=== PATIENT | male | born 1930 | race Caucasian/White ===

== ENCOUNTER 2017-10-22 16:08 | Emergency (ER) | payer OTHER ==
[2017-10-22] MEDS ORDERED: NA CHLORIDE 0.9% 1,000 ML ONE (16:43)
[2017-10-22 16:55] LABS: Absolute Lymphocytes (CBC) 1.4 K/uL (0.7-4.9); Absolute Monocytes 0.5 K/uL (0.1-1.3); Absolute Neutrophil 4.2 K/uL (1.8-8.0); Basophils % 0.5 % (0-1.3); Hematocrit 36.3 % (39.6-49.0); Lymphocytes % 22.5 % (15.3-44.8); MCH 31.7 pg (27.0-35.0); MPV 8.9 fL (7.6-11.3); Monocytes % 7.7 % (3.3-12.3); RBC Red Blood Cell Count 3.94 M/uL (4.33-5.43)
[2017-10-22 17:06] LABS: Potassium 3.6 mEq/L (3.6-5.0)
[2017-10-22 17:09] LABS: Albumin 3.8 g/dL (3.2-5.5); Bilirubin Total 0.4 mg/dL (0.3-1.2); Protein, Total 6.4 g/dL (6.0-8.3)
--- NOTE | 2017-10-22 18:50 | EDPHYS ---
Physician Documentation [facility] Name: Rell Hooker Age: 86 yrs Sex: Male : 1930 Arrival Date: 10/22/2017 Time: 16:11 Bed 5 Private MD: None, None ED Physician Nicola Morales HPI: 10/22 19:00 This 86 yrs old Male presents to ER via Wheelchair with complaints of High pm1 Blood Sugar. 19:00 The patient or guardian reports hyperglycemia, that was potentially precipitated by no pm1 particular event. Onset: The symptoms/episode began/occurred today. Associated signs and symptoms: Pertinent positives: None. Current symptoms: In the emergency department the patient's symptoms have improved, mildly. The patient has experienced similar episodes in the past, a few times. The patient has not recently seen a physician. Patient with complaint of hyperglycemia only. No other complaints. Historical: - Allergies: 16:27 No Known Allergies; sv - PMHx: 16:27 Alzheimers; Diabetes - NIDDM; Hypertension; sv - PSHx: 16:27 Heart stents; prostate cancer; Cholecystectomy; sv - Immunization history:: Adult Immunizations up to date, Adult Immunizations up to date. - Social history:: Smoking status: Patient/guardian denies using tobacco, Smoking status: Patient/guardian denies using tobacco. - Ebola Screening: : Patient denies travel to an Ebola-affected area in the 21 days before illness onset No symptoms or risks identified at this time. ROS: 19:00 Constitutional: Negative for fever, chills, and weight loss, Eyes: Negative for injury, pm1 pain, redness, and discharge, ENT: Negative for injury, pain, and discharge, Neck: Negative for injury, pain, and swelling, Cardiovascular: Negative for chest pain, palpitations, and edema, Respiratory: Negative for shortness of breath, cough, wheezing, and pleuritic chest pain, Abdomen/GI: Negative for abdominal pain, nausea, vomiting, diarrhea, and constipation, Back: Negative for injury and pain, : Negative for injury, bleeding, discharge, and swelling, MS/Extremity: Negative for injury and deformity, Skin: Negative for injury, rash, and discoloration, Neuro: Negative for headache, weakness, numbness, tingling, and seizure. 19:00 Endocrine: Positive for hyperglycemia. Exam: 19:00 Constitutional: This is a well developed, well nourished patient who is awake, alert, pm1 and in no acute distress. Head/Face: Normocephalic, atraumatic. Eyes: Pupils equal round and reactive to light, extra-ocular motions intact. Lids and lashes normal. Conjunctiva and sclera are non-icteric and not injected. Cornea within normal limits. Periorbital areas with no swelling, redness, or edema. ENT: Nares patent. No nasal discharge, no septal abnormalities noted. Tympanic membranes are normal and external auditory canals are clear. Oropharynx with no redness, swelling, or masses, exudates, or evidence of obstruction, uvula midline. Mucous membranes moist. Neck: Trachea midline, no thyromegaly or masses palpated, and no cervical lymphadenopathy. Supple, full range of motion without nuchal rigidity, or vertebral point tenderness. No Meningismus. Chest/axilla: Normal chest wall appearance and motion. Nontender with no deformity. No lesions are appreciated. Cardiovascular: Regular rate and rhythm with a normal S1 and S2. No gallops, murmurs, or rubs. Normal PMI, no JVD. No pulse deficits. Respiratory: Lungs have equal breath sounds bilaterally, clear to auscultation and percussion. No rales, rhonchi or wheezes noted. No increased work of breathing, no retractions or nasal flaring. Abdomen/GI: Soft, non-tender, with normal bowel sounds. No distension or tympany. No guarding or rebound. No evidence of tenderness throughout. Back: No spinal tenderness. No costovertebral tenderness. Full range of motion. Skin: Warm, dry with normal turgor. Normal color with no rashes, no lesions, and no evidence of cellulitis. MS/ Extremity: Pulses equal, no cyanosis. Neurovascular intact. Full, normal range of motion. 19:00 Neuro: Orientation: is normal, Motor: is normal, moves all fours, Sensation: is normal, no obvious gross deficits. Vital Signs: 16:25 BP 122 / 70; Pulse 81; Resp 20; Temp 98.8(O); Pulse Ox 96% on R/A; Weight 72.57 kg (R); tw2 Height 5 ft. 10 in. (177.80 cm); Pain 0/10; 17:35 BP 126 / 61; Pulse 72; Pulse Ox 100% on R/A; sv 18:38 BP 133 / 63; Pulse 67; Resp 18; Pulse Ox 99% ; sv 16:25 Body Mass Index 22.96 (72.57 kg, 177.80 cm) tw2 MDM: 16:39 Patient medically screened. pm1 18:48 Data reviewed: vital signs. Data interpreted: Pulse oximetry: on room air is 99 %. pm1 Interpretation: normal. Counseling: I had a detailed discussion with the patient and/or guardian regarding: the historical points, exam findings, and any diagnostic results supporting the discharge/admit diagnosis, lab results, the need for outpatient follow up, to return to the emergency department if symptoms worsen or persist or if there are any questions or concerns that arise at home. 10/22 16:26 Order name: Glucose, Ancillary Testing; Complete Time: 16:39 EDMS 10/22 16:41 Order name: CBC with Diff; Complete Time: 17:12 pm1 10/22 16:41 Order name: CMP; Complete Time: 17:12 pm1 10/22 16:41 Order name: IV Saline Lock; Complete Time: 16:42 pm1 10/22 18:01 Order name: Glucose Level; Complete Time: 18:41 pm1 Administered Medications: 16:47 Drug: NS 0.9% 1000 ml Route: IV; Rate: 1000 ml; Site: left antecubital; sv 18:00 Follow up: Response: No adverse reaction; IV Status: Completed infusion; IV Intake: sv 1000ml Point of Care Testing: Blood Glucose: 16:25 Blood Glucose: 294 mg/dL; sv 16:25 Blood Glucose: 294 mg/dL; tw2 16:25 per JULY Burger tw2 Ranges: Critical Glucose Levels:Adult <50 mg/dl or >400 mg/dl <40 mg/dl or >180 mg/dl Disposition: 10/22/17 18:49 Discharged to Home. Impression: Hyperglycemia, unspecified. - Condition is Stable. - Discharge Instructions: Hyperglycemia, Blood Glucose Monitoring, Adult. - Medication Reconciliation Form, Thank You Letter form. - Follow up: Emergency Department; When: As needed; Reason: Worsening of condition. Follow up: Private Physician; When: 2 - 3 days; Reason: Recheck today's complaints, Continuance of care, Re-evaluation by your physician. - Problem is new. - Symptoms have improved. Addendum: 10/26/2017 08:32 Co-signature as Attending Physician, Nicola Morales MD I agree with the assessment and k dr plan of care. Signatures: Dispatcher [employer] EDMS Jennyfer Simpson, RN RN Nicola Macias MD MD [facility] Lionel Patel, STREETCAR CONDUCTOR STREETCAR CONDUCTOR pm1 Edilma Roy RN RN tw2 Corrections: (The following items were deleted from the chart) 10/22 18:56 18:49 10/22/2017 18:49 Discharged to Home. Impression: Hyperglycemia, unspecified. tw2 Condition is Stable. Forms are Medication Reconciliation Form, Thank You Letter, Antibiotic Education, Prescription Opioid Use. Follow up: Emergency Department; When: As needed; Reason: Worsening of condition. Follow up: Private Physician; When: 2 - 3 days; Reason: Recheck today's complaints, Continuance of care, Re-evaluation by your physician. Problem is new. Symptoms have improved. pm1
--- NOTE | 2017-10-22 18:50 | ER ---
Nurse's Notes [facility] Name: Rell Hooker Age: 86 yrs Sex: Male : 1930 Arrival Date: 10/22/2017 Time: 16:11 Bed 5 Private MD: None, None Diagnosis: Hyperglycemia, unspecified Presentation: 10/22 16:26 Presenting complaint: Child states: pts blood sugar was over 400 this morning and we tw2 were just concerned. Transition of care: patient was received from another setting of care (long-term care facility), [facility]. Onset of symptoms was October 22, 2017. Risk Assessment: Do you want to hurt yourself or someone else? Patient reports no desire to harm self or others. Initial Sepsis Screen: Does the patient meet any 2 criteria? No. Patient's initial sepsis screen is negative. Does the patient have a suspected source of infection? No. Patient's initial sepsis screen is negative. Care prior to arrival: None. 16:26 Method Of Arrival: Wheelchair tw2 16:26 Acuity: MOIZ 3 tw2 Triage Assessment: 16:30 General: Appears in no apparent distress. comfortable, Behavior is calm, cooperative, sv appropriate for age. Pain: Denies pain. EENT: No signs and/or symptoms were reported regarding the EENT system. Neuro: Level of Consciousness is awake, alert, obeys commands, Oriented to person, place, time, situation, Moves all extremities. Full function Gait is steady, Speech is normal. Cardiovascular: Patient's skin is warm and dry. Respiratory: Respiratory effort is even, unlabored, Respiratory pattern is regular, symmetrical. GI: No signs and/or symptoms were reported involving the gastrointestinal system. : No signs and/or symptoms were reported regarding the genitourinary system. Derm: Skin is normal. Musculoskeletal: No signs and/or symptoms reported regarding the musculoskeletal system. Historical: - Allergies: 16:27 No Known Allergies; sv - PMHx: 16:27 Alzheimers; Diabetes - NIDDM; Hypertension; sv - PSHx: 16:27 Heart stents; prostate cancer; Cholecystectomy; sv - Immunization history:: Adult Immunizations up to date, Adult Immunizations up to date. - Social history:: Smoking status: Patient/guardian denies using tobacco, Smoking status: Patient/guardian denies using tobacco. - Ebola Screening: : Patient denies travel to an Ebola-affected area in the 21 days before illness onset No symptoms or risks identified at this time. Screenin:26 Abuse screen: Denies threats or abuse. Denies injuries from another. Nutritional sv screening: No deficits noted. Tuberculosis screening: No symptoms or risk factors identified. Fall Risk None identified. Assessment: 17:00 Reassessment: Patient appears in no apparent distress at this time. No changes from sv previously documented assessment. Patient and/or family updated on plan of care and expected duration. Pain level reassessed. Patient is alert, oriented x 3, equal unlabored respirations, skin warm/dry/pink. Daughter at the bedside. 18:42 Reassessment: Patient appears in no apparent distress at this time. No changes from sv previously documented assessment. Patient and/or family updated on plan of care and expected duration. Pain level reassessed. Patient is alert, oriented x 3, equal unlabored respirations, skin warm/dry/pink. 18:56 Reassessment: Patient appears in no apparent distress at this time. No changes from sv previously documented assessment. Patient and/or family updated on plan of care and expected duration. Pain level reassessed. Patient is alert, oriented x 3, equal unlabored respirations, skin warm/dry/pink. Vital Signs: 16:25 BP 122 / 70; Pulse 81; Resp 20; Temp 98.8(O); Pulse Ox 96% on R/A; Weight 72.57 kg (R); tw2 Height 5 ft. 10 in. (177.80 cm); Pain 0/10; 17:35 BP 126 / 61; Pulse 72; Pulse Ox 100% on R/A; sv 18:38 BP 133 / 63; Pulse 67; Resp 18; Pulse Ox 99% ; sv 16:25 Body Mass Index 22.96 (72.57 kg, 177.80 cm) tw2 ED Course: 16:11 Patient arrived in ED. mr 16:14 None, None is Private Physician. mr 16:26 Patient has correct armband on for positive identification. Placed in gown. Bed in low sv position. Call light in reach. Side rails up X 1. Adult w/ patient. Door closed. Head of bed elevated. 16:26 Arm band placed on. tw2 16:26 alarm security or surveillance monitor on. Pulse ox on. NIBP on. sv 16:27 Triage completed. tw2 16:28 Jennyfer Simpson, RN is Primary Nurse. sv 16:29 Lionel Patel NP is PHCP. pm1 16:29 Nicola Morales MD is Attending Physician. pm1 16:38 Initial lab(s) drawn, by me, sent to lab. Inserted saline lock: 20 gauge in left sv antecubital area, using aseptic technique. Blood collected. 18:56 No provider procedures requiring assistance completed. IV discontinued, intact, tw2 bleeding controlled, No redness/swelling at site. Pressure dressing applied. Administered Medications: 16:47 Drug: NS 0.9% 1000 ml Route: IV; Rate: 1000 ml; Site: left antecubital; sv 18:00 Follow up: Response: No adverse reaction; IV Status: Completed infusion; IV Intake: sv 1000ml Point of Care Testing: Blood Glucose: 16:25 Blood Glucose: 294 mg/dL; sv 16:25 Blood Glucose: 294 mg/dL; tw2 16:25 per JULY Burger tw2 Ranges: Intake: 18:00 IV: 1000ml; Total: 1000ml. sv Outcome: 18:49 Discharge ordered by . pm1 18:56 Discharged to home via wheelchair, with family. tw2 18:56 Condition: stable 18:56 Discharge instructions given to patient, family, Instructed on discharge instructions, follow up and referral plans. Demonstrated understanding of instructions, follow-up care. 18:56 Patient left the ED. tw2 Signatures: Jennyfer Simpson RN RN JonesCassie mr Lionel Patel NP FILM WAXER pm1 Edilma Roy RN RN tw2
[2017-10-22 19:16] VITALS: TEMP 98.8
[2017-10-22 19:19] VITALS: BP 133/63; O2SAT 99
== END 2017-10-22 18:56 | disposition home or self-care (01) ==
LOC: ER 16:08
DX: E11.65 Type 2 diabetes mellitus with hyperglycemia (principal); I10 Essential (primary) hypertension; G30.9 Alzheimer's disease, unspecified; F02.80 Dementia in other diseases classified elsewhere, unspecified severity, without behavioral disturbance, psychotic disturbance, mood disturbance, and anxiety; Z85.46 Personal history of malignant neoplasm of prostate; Z95.818 Presence of other cardiac implants and grafts
CPT/HCPCS: 36415; 80053; 82962 ×2; 85025; 96360; 99284; J7030

== ENCOUNTER 2018-08-19 12:05 | Emergency (ER) | payer OTHER ==
[2018-08-19 12:43] LABS: Absolute Lymphocytes (CBC) 0.8 K/uL (0.7-4.9); Absolute Monocytes 0.5 K/uL (0.1-1.3); Absolute Neutrophil 4.7 K/uL (1.8-8.0); Basophils % 0.3 % (0-1.3); Eosinophils % 0.1 % (0-4.4); Hematocrit 22.8 % (39.6-49.0); Lymphocytes % 12.7 % (15.3-44.8); MPV 8.3 fL (7.6-11.3); Monocytes % 7.8 % (3.3-12.3); RBC Red Blood Cell Count 2.95 M/uL (4.33-5.43)
[2018-08-19 12:46] LABS: Protime INR 1.03
[2018-08-19 13:12] LABS: Bilirubin Direct 0.1 mg/dL (0-0.2); Bilirubin Total 0.3 mg/dL (0.2-1.0); Potassium 4.2 mmol/L (3.5-5.1); Protein, Total 6.4 g/dL (6.4-8.2)
[2018-08-19 13:13] LABS: Albumin 3.4 g/dL (3.4-5.0)
[2018-08-19 13:41] LABS: Troponin (Emerg Dept Use Only) 1.48 ng/mL (0.0-0.045)
--- NOTE | 2018-08-19 13:41 | RAD REPORT ---
EXAM DESCRIPTION: Dory Single View08/19/2018 12:40 pm CLINICAL HISTORY: Chest pain COMPARISON: 2017 FINDINGS: The lungs appear clear of acute infiltrate. The heart is normal size IMPRESSION: No acute abnormalities displayed
[2018-08-19] MEDS ORDERED: NA CHLORIDE 0.9% 500 ML ONE (13:48)
[2018-08-19] MEDS ORDERED: FENTANYL CITR 100 MCG/2 ML ONE (14:15)
--- NOTE | 2018-08-19 14:19 | ER ---
Nurse's Notes [facility] Name: Rell Hooker Age: 87 yrs Sex: Male : 1930 Arrival Date: 08/19/2018 Time: 12:07 Bed 15 Private MD: Diagnosis: Gastrointestinal hemorrhage, unspecified;Chest pain, unspecified;Unspecified atrial fibrillation-new onset;Elevated troponin Presentation: 08/19 12:08 Presenting complaint: EMS states: Chest pain that began this morning. Feels like indigestion, but is unrelieved by GERD medication. Transition of care: patient was received from another setting of care (long-term care facility), [facility]. Onset of symptoms was August 19, 2018. Risk Assessment: Do you want to hurt yourself or someone else? Patient reports no desire to harm self or others. Initial Sepsis Screen: Does the patient have a suspected source of infection? No. Patient's initial sepsis screen is negative. 12:08 Method Of Arrival: EMS: [facility] 12:15 Initial Sepsis Screen: Does the patient meet any 2 criteria? No. Patient's initial rb1 sepsis screen is negative. Care prior to arrival: Medication(s) given: ASA, 324 mg PO x once Normal saline infusion, 500 mL. 12:20 Acuity: MOIZ 3 la1 Historical: - Allergies: 12:09 No Known Allergies; ss - Home Meds: 12:15 donepezil 23 mg Oral tab once daily [Active]; Glimepiride Oral [Active]; memantine 10 rb1 mg Oral tab 1 tab 2 times per day [Active]; metformin 500 mg Oral tab daily [Active]; metoprolol tartrate 25 mg Oral tab 1 tab 2 times per day [Active]; oxybutynin chloride 5 mg Oral tab 1 tab 2 times per day [Active]; - PMHx: 12:09 Alzheimers; Diabetes - NIDDM; Hypertension; ss 12:13 GERD; ss - PSHx: 12:09 Heart stents; prostate cancer; Cholecystectomy; ss - Immunization history:: Adult Immunizations up to date. - Social history:: Smoking status: Patient/guardian denies using tobacco. - Ebola Screening: : Patient negative for fever greater than or equal to 101.5 degrees Fahrenheit, and additional compatible Ebola Virus Disease symptoms. Screenin:15 Abuse screen: Denies threats or abuse. Nutritional screening: No deficits noted. rb1 Tuberculosis screening: No symptoms or risk factors identified. 12:15 Fall Risk No fall in past 12 months (0 pts). Secondary diagnosis (15 points) rb1 Alzheimer's, dementia, IV access (20 points). Ambulatory Aid- None/Bed Rest/Nurse Assist (0 pts). Gait- Normal/Bed Rest/Wheelchair (0 pts) Mental Status- Overestimates/Forgets Limitations (15 pts.). Total Hope Fall Scale indicates High Risk Score (45 or more points). Fall prevention measures have been instituted. Side Rails Up X 2 Placed Close to Nursing Station 1:1 Attendant Assigned Frequent Obs/Assessments Occuring Family Present and informed to notify staff if the need to leave the bedside As available patient and family educated on Fall Prevention Program and Strategies. Assessment: 12:15 General: Appears in no apparent distress. comfortable, slender, Behavior is calm, rb1 cooperative. Pain: Complains of pain in mid-sternal area Pain does not radiate. Pain currently is 5 out of 10 on a pain scale. Neuro: Level of Consciousness is awake, obeys commands, confused, Oriented to person. Neuro: Cardiovascular: Capillary refill < 3 seconds is brisk in bilateral fingers. Cardiovascular: Rhythm is atrial fibrillation Chest pain is described as mild. Respiratory: Airway is patent Respiratory effort is even, unlabored, Respiratory pattern is regular, symmetrical. GI: No signs and/or symptoms were reported involving the gastrointestinal system. : No signs and/or symptoms were reported regarding the genitourinary system. Derm: Skin is pink, warm \T\ dry. 12:15 Pain: Pain began this morning. rb1 13:15 Reassessment: Patient appears in no apparent distress at this time. Patient and/or rb1 family updated on plan of care and expected duration. Pain level reassessed. Patient is alert, oriented x 3, equal unlabored respirations, skin warm/dry/pink. 14:15 Reassessment: Patient appears in no apparent distress at this time. Patient and/or rb1 family updated on plan of care and expected duration. Pain level reassessed. Patient is alert, oriented x 3, equal unlabored respirations, skin warm/dry/pink. at the bedside. Patient denies pain at this time. 15:15 Reassessment: Patient appears in no apparent distress at this time. No changes from rb1 previously documented assessment. Patient denies pain at this time. 16:15 Reassessment: Patient appears in no apparent distress at this time. Patient and/or rb1 family updated on plan of care and expected duration. Pain level reassessed. Patient is alert, oriented x 3, equal unlabored respirations, skin warm/dry/pink. Family at bedside. Patient denies pain at this time. 16:16 Reassessment: Called report to JULY Prieto at [facility]. Information from the [facility] was given. rb1 All questions asked and answered. 17:00 Reassessment: Patient appears in no apparent distress at this time. Patient and/or rb1 family updated on plan of care and expected duration. Pain level reassessed. Patient is alert, oriented x 3, equal unlabored respirations, skin warm/dry/pink. Patient denies pain at this time. Vital Signs: 12:13 BP 104 / 90; Pulse 115; Resp 16; Pulse Ox 99% on R/A; Pain 7/10; em 13:00 BP 108 / 91; Pulse 107; Resp 14; Temp 97.7(O); Pulse Ox 97% on R/A; Pain 4/10; rb1 13:30 BP 104 / 72; Pulse 109; Resp 14; Pulse Ox 97% on R/A; rb1 14:30 BP 102 / 31; Pulse 94; Resp 13; Pulse Ox 98% on R/A; rb1 15:22 BP 119 / 62; Pulse 109; Resp 20; Pulse Ox 100% on R/A; Pain 0/10; rb1 16:20 BP 110 / 67; Pulse 94; Resp 12; Pulse Ox 95% on R/A; Pain 0/10; rb1 ED Course: 12:07 Patient arrived in ED. ss 12:08 Kaitlynn Azul [facility]-C [facility]. kb 12:08 Philip Jasmine MD is Attending Physician. kb 12:09 Arm band placed on right wrist. ss 12:15 Patient has correct armband on for positive identification. Placed in gown. Bed in low rb1 position. Call light in reach. Side rails up X2. color television console monitor on. Pulse ox on. NIBP on. Warm blanket given. 12:15 Maintain EMS IV. Dressing intact. Site clean \T\ dry. Gauge \T\ site: 20 G L FA. Patient rb 1 maintains SpO2 saturation greater than 95% on room air. 12:16 Angie Gallardo, RN is Primary Nurse. rb1 12:20 Triage completed. la1 12:30 Inserted saline lock: 22 gauge in left antecubital area, using aseptic technique. Blood rb1 collected. 12:31 EKG done, by ED staff, reviewed by Kaitlynn SAHU. em 12:35 X-ray completed. Portable x-ray completed in exam room. Patient tolerated procedure la2 well. 12:39 XRAY Chest (1 view) In Process Unspecified. EDMS 14:05 T\T\S collected, blood band applied to patient. dh3 17:11 No provider procedures requiring assistance completed. Patient transferred, IV remains rb1 in place. Administered Medications: 13:30 Drug: NS 0.9% 500 ml Route: IV; Rate: bolus; Site: left antecubital; rb1 14:00 Follow up: IV Status: Completed infusion rb1 14:08 Drug: fentaNYL (PF) 25 mcg {Note: Had to call pharmacy because I hit yes to the rb1 question Do you plan on administering 100 mcg, when I should have hit no. When I counted there were seven vials in the Pyxis, and I hit skip this med. It wouldn't let me pull the med after that. .} Route: IVP; Site: left antecubital; 14:27 Follow up: Response: No adverse reaction; Pain is decreased rb1 Outcome: 14:18 ER care complete, transfer ordered by MD. kb 17:11 Patient left the ED. ss 17:11 Transferred by ground EMS to [facility], Transfer form rb1 completed. 17:11 Condition: stable 17:11 Instructed on the need for transfer. Signatures: Dispatcher [employer] EDWY Kailtynn Azul FNP-C ADMINISTRATIVE SERVICES OFFICER-Chaparro Turner, TOUR SALES REPRESENTATIVE TOUR SALES REPRESENTATIVE Lary Velez RN RN Danial Burris RN RN la1 Angie Gallardo, RN RN rb1 Vy Chau 3 Christie Antunez la2 Corrections: (The following items were deleted from the chart) 12:13 12:08 Presenting complaint: EMS states: Chest pain that began this morning. Feels like ss indigestion, but is unrelieved by medication. ss 13:57 13:00 BP 108 / 91; Pulse 107bpm; Resp 14bpm; Pulse Ox 97% RA; rb1 rb1
--- NOTE | 2018-08-19 14:19 | EDPHYS ---
Physician Documentation [facility] Name: Rell Hookre Age: 87 yrs Sex: Male : 1930 Arrival Date: 08/19/2018 Time: 12:07 Bed 15 Private MD: ED Physician Philip Jasmine HPI: 08/19 12:46 This 87 yrs old Male presents to ER via EMS with complaints of Chest Pain > kb 32 y/o. 12:46 The patient or guardian reports chest pain that is located primarily in the substernal kb area. Onset: today, at 07:00. The pain does not radiate. Associated signs and symptoms: The patient has no apparent associated signs or symptoms. The chest pain is described as aching. Duration: The patient or guardian reports a single episode, that is still ongoing. Modifying factors: The symptoms are alleviated by nothing. the symptoms are aggravated by nothing. Severity of pain: At its worst the pain was mild moderate in the emergency department the pain is unchanged. The patient has not experienced similar symptoms in the past. The patient has not recently seen a physician. Historical: - Allergies: 12:09 No Known Allergies; ss - Home Meds: 12:15 donepezil 23 mg Oral tab once daily [Active]; Glimepiride Oral [Active]; memantine 10 rb1 mg Oral tab 1 tab 2 times per day [Active]; metformin 500 mg Oral tab daily [Active]; metoprolol tartrate 25 mg Oral tab 1 tab 2 times per day [Active]; oxybutynin chloride 5 mg Oral tab 1 tab 2 times per day [Active]; - PMHx: 12:09 Alzheimers; Diabetes - NIDDM; Hypertension; ss 12:13 GERD; ss - PSHx: 12:09 Heart stents; prostate cancer; Cholecystectomy; ss - Immunization history:: Adult Immunizations up to date. - Social history:: Smoking status: Patient/guardian denies using tobacco. - Ebola Screening: : Patient negative for fever greater than or equal to 101.5 degrees Fahrenheit, and additional compatible Ebola Virus Disease symptoms. ROS: 12:46 Constitutional: Negative for fever, chills, and weight loss, Respiratory: Negative for kb shortness of breath, cough, wheezing, and pleuritic chest pain, Abdomen/GI: Negative for abdominal pain, nausea, vomiting, diarrhea, and constipation, Back: Negative for injury and pain, : Negative for injury, bleeding, discharge, and swelling, MS/Extremity: Negative for injury and deformity, Skin: Negative for injury, rash, and discoloration, Neuro: Negative for headache, weakness, numbness, tingling, and seizure. 12:46 Cardiovascular: Positive for chest pain, Negative for edema, orthopnea, palpitations, paroxysmal nocturnal dyspnea. Exam: 12:46 Constitutional: This is a well developed, well nourished patient who is awake, alert, kb and in no acute distress. Head/Face: Normocephalic, atraumatic. ENT: Nares patent. No nasal discharge, no septal abnormalities noted. Tympanic membranes are normal and external auditory canals are clear. Oropharynx with no redness, swelling, or masses, exudates, or evidence of obstruction, uvula midline. Mucous membranes moist. Neck: Trachea midline, no thyromegaly or masses palpated, and no cervical lymphadenopathy. Supple, full range of motion without nuchal rigidity, or vertebral point tenderness. No Meningismus. Chest/axilla: Normal chest wall appearance and motion. Nontender with no deformity. No lesions are appreciated. Respiratory: Lungs have equal breath sounds bilaterally, clear to auscultation and percussion. No rales, rhonchi or wheezes noted. No increased work of breathing, no retractions or nasal flaring. Abdomen/GI: Soft, non-tender, with normal bowel sounds. No distension or tympany. No guarding or rebound. No evidence of tenderness throughout. Skin: Warm, dry with normal turgor. Normal color with no rashes, no lesions, and no evidence of cellulitis. MS/ Extremity: Pulses equal, no cyanosis. Neurovascular intact. Full, normal range of motion. Neuro: Awake and alert, GCS 15, oriented to person, place, time, and situation. Cranial nerves II-XII grossly intact. Motor strength 5/5 in all extremities. Sensory grossly intact. Cerebellar exam normal. Normal gait. 12:46 Cardiovascular: Rate: normal, Rhythm: irregularly irregular, Pulses: no pulse deficits are appreciated. 14:11 Abdomen/GI: Rectal exam: rectal tone normal, Stool: guaiac positive, the exam is kb chaperoned by the nurse. Vital Signs: 12:13 BP 104 / 90; Pulse 115; Resp 16; Pulse Ox 99% on R/A; Pain 7/10; em 13:00 BP 108 / 91; Pulse 107; Resp 14; Temp 97.7(O); Pulse Ox 97% on R/A; Pain 4/10; rb1 13:30 BP 104 / 72; Pulse 109; Resp 14; Pulse Ox 97% on R/A; rb1 14:30 BP 102 / 31; Pulse 94; Resp 13; Pulse Ox 98% on R/A; rb1 15:22 BP 119 / 62; Pulse 109; Resp 20; Pulse Ox 100% on R/A; Pain 0/10; rb1 16:20 BP 110 / 67; Pulse 94; Resp 12; Pulse Ox 95% on R/A; Pain 0/10; rb1 MDM: 12:08 Patient medically screened. kb 12:46 Data reviewed: vital signs, nurses notes. Data interpreted: Pulse oximetry: on room air kb is 99 %. Interpretation: normal. 14:10 The patient was not given aspirin in the Emergency Department. Patient reports taking kb aspirin within the past 24 hours. Counseling: I had a detailed discussion with the patient and/or guardian regarding: the historical points, exam findings, and any diagnostic results supporting the discharge/admit diagnosis, lab results, radiology results, the need to transfer to another facility, [facility] does not immediately have the required specialist. ED course: Transfer initiated due to lack of GI coverage. Dr Golden, GI at [facility], agrees to consult on pt if accepted by cardiology. 14:23 ED course: [facility] declined transfer because their laboratory equipment cleaner is down. Will kb initiate transfer to [facility]. . 14:44 ED course: [facility] is at capacity. Will initiate transfer to [facility].. kb 15:09 ED course: [facility] is also at capacity. Will initiate transfer to [facility]. kb 15:22 ED course: [facility] at [facility], Dr Valera, accepts pt for transfer. . kb 08/19 12:08 Order name: Basic Metabolic Panel; Complete Time: 13:41 kb 08/19 12:08 Order name: CBC with Diff; Complete Time: 13:42 kb 08/19 12:08 Order name: LFT's; Complete Time: 13:41 kb 08/19 12:08 Order name: Magnesium; Complete Time: 13:41 kb 08/19 12:08 Order name: NT PRO-BNP; Complete Time: 13:41 kb 08/19 12:08 Order name: PT-INR; Complete Time: 13:18 kb 08/19 12:08 Order name: EKG; Complete Time: 12:08 ss 08/19 12:08 Order name: EKG - Nurse/Tech; Complete Time: 13:20 ss 08/19 12:08 Order name: Troponin (emerg Dept Use Only); Complete Time: 13:41 kb 08/19 12:08 Order name: XRAY Chest (1 view); Complete Time: 13:42 kb 08/19 12:08 Order name: Cardiac monitoring; Complete Time: 13:20 kb 08/19 13:43 Order name: Type And Screen; Complete Time: 15:10 kb 08/19 12:08 Order name: IV Saline Lock; Complete Time: 13:20 kb 08/19 12:08 Order name: Labs collected and sent; Complete Time: 13:20 kb 08/19 12:08 Order name: O2 Per Protocol; Complete Time: 13:20 kb 08/19 12:08 Order name: O2 Sat Monitoring; Complete Time: 13:20 kb Administered Medications: 13:30 Drug: NS 0.9% 500 ml Route: IV; Rate: bolus; Site: left antecubital; rb1 14:00 Follow up: IV Status: Completed infusion rb1 14:08 Drug: fentaNYL (PF) 25 mcg {Note: Had to call pharmacy because I hit yes to the rb1 question Do you plan on administering 100 mcg, when I should have hit no. When I counted there were seven vials in the Pyxis, and I hit skip this med. It wouldn't let me pull the med after that. .} Route: IVP; Site: left antecubital; 14:27 Follow up: Response: No adverse reaction; Pain is decreased rb1 Disposition: 08/19/18 14:18 Transfer ordered to [facility]. Diagnosis are Gastrointestinal hemorrhage, unspecified, Chest pain, unspecified, Unspecified atrial fibrillation - new onset, Elevated troponin. - Reason for transfer: Higher level of care. - Accepting physician is [facility]. - Condition is Stable. - Problem is new. - Symptoms are unchanged. Signatures: Dispatcher [employer] Kaitlynn Ruiz FNP-C FNP-Ckb Chaparro [place], [employer] SAL[employer] REPRESENTATIVE [employer] SALES REPRESENTATIVE em Lary Tony, RN RN ss Angie Gallardo, RN RN rb1 Corrections: (The following items were deleted from the chart) 14:27 14:18 08/19/2018 14:[address] [facility]. Diagnosis is kb Gastrointestinal hemorrhage, unspecified; Chest pain, unspecified; Unspecified atrial fibrillation - new onset; Elevated troponin. Reason for transfer: Higher level of care. Accepting physician is [facility]. Condition is Stable. Problem is new. Symptoms are unchanged. kb 14:54 14:27 08/19/2018 14:18 Transfer ordered to [facility]. kb Diagnosis is Gastrointestinal hemorrhage, unspecified; Chest pain, unspecified; Unspecified atrial fibrillation - new onset; Elevated troponin. Reason for transfer: Higher level of care. Accepting physician is [facility]. Condition is Stable. Problem is new. Symptoms are unchanged. kb 15:10 14:54 08/19/2018 14:18 Transfer ordered to [facility]. Diagnosis is kb Gastrointestinal hemorrhage, unspecified; Chest pain, unspecified; Unspecified atrial fibrillation - new onset; Elevated troponin. Reason for transfer: Higher level of care. Accepting physician is [facility]. Condition is Stable. Problem is new. Symptoms are unchanged. kb 16:00 15:22 ED course: [facility] at [facility] accepts pt for transfer. . kb kb 16:00 15:10 08/19/2018 14:18 Transfer ordered to [facility]. Diagnosis is kb Gastrointestinal hemorrhage, unspecified; Chest pain, unspecified; Unspecified atrial fibrillation - new onset; Elevated troponin. Reason for transfer: Higher level of care. Accepting physician is [facility]. Condition is Stable. Problem is new. Symptoms are unchanged. kb 17:11 16:00 08/19/2018 14:18 Transfer ordered to [facility]. Diagnosis is ss Gastrointestinal hemorrhage, unspecified; Chest pain, unspecified; Unspecified atrial fibrillation - new onset; Elevated troponin. Reason for transfer: Higher level of care. Accepting physician is [facility]. Condition is Stable. Problem is new. Symptoms are unchanged. kb
[2018-08-19 17:17] VITALS: TEMP 97.7
[2018-08-19 17:23] VITALS: BP 110/67; O2SAT 95
--- NOTE | 2018-08-20 09:43 | EKG ---
Test Date: 2018-08-19 Test Time: 12:29:00 [employer]ling [employer] Grader: SHRADDHA MEASUREMENT RESULTS: Intervals: Rate: 98 DC: QRSD: 76 QT: 338 QTc: 431 [place]: P: DC: QRS: 34 T: 29 INTERPRETIVE STATEMENTS: Atrial fibrillation with premature ventricular or aberrantly conducted complexes Cannot rule out Anterior infarct, age undetermined Abnormal ECG Compared to ECG 01/21/2017 15:44:02 Ventricular premature complex(es) now present Sinus rhythm no longer present Myocardial infarct finding still present Electronically Signed On 08-20-18 09:42:35 CDT by Christian Padilla
== END 2018-08-19 17:11 | disposition short-term general hospital (02) ==
LOC: ER 12:05
DX: K92.2 Gastrointestinal hemorrhage, unspecified (principal); I48.91 Unspecified atrial fibrillation; R79.89 Other specified abnormal findings of blood chemistry; I10 Essential (primary) hypertension; E11.9 Type 2 diabetes mellitus without complications; G30.9 Alzheimer's disease, unspecified; F02.80 Dementia in other diseases classified elsewhere, unspecified severity, without behavioral disturbance, psychotic disturbance, mood disturbance, and anxiety; Z85.46 Personal history of malignant neoplasm of prostate; Z95.818 Presence of other cardiac implants and grafts
CPT/HCPCS: 93005; 85025; 80048; 36415; 86900; 83735; 86850; 85610; 86901; 80076; 84484; 83880; 71045; 96374; 99285; J3010